=== PATIENT | female | born 1955 | race Caucasian/White ===

== ENCOUNTER 2024-09-30 18:13 | Emergency (ER) | payer MEDICARE, OTHER, SELFPAY ==
[2024-09-30 18:19] VITALS: BP 188/108
[2024-09-30 18:34] LABS: Hematocrit 40.2 % (37.0-47.0); Hemoglobin 13.0 g/dL (12.0-16.0); Mean Corp Hgb Conc. 32.3 g/dL (33.0-37.0); Mean Corpuscular Volume 86.1 fL (81.0-99.0); Nucleated Red Blood Cells % 0 %; Platelet Count 203 10^3/uL (130-400); Red Cell Dist. Width 14.1 % (11.5-14.5)
[2024-09-30 18:59] LABS: Troponin I < 0.012 ng/ml
[2024-09-30 19:01] LABS: ALT (SGPT) 15 U/L (0-35); AST (SGOT) 17 U/L (14-36); Albumin 4.3 g/dl (3.5-5.0); Alkaline Phosphatase 70 U/L (38-126); Blood Urea Nitrogen 19 mg/dl (7-17); Calcium 9.7 mg/dl (8.4-10.2); Carbon Dioxide 27 mmol/L (22-30); Chloride 108 mmol/L (98-107); Glucose 108 mg/dl (70-99); Lipase 81 U/L (23-300); Potassium 4.2 mmol/L (3.5-5.1); Sodium 140 mmol/L (135-145); Total Protein 7.5 g/dl (6.3-8.2); eGFR > 60.00
[2024-09-30 20:00] VITALS: BP 151/68
[2024-09-30] MEDS: TYLENOL 1000 MG PO (20:57)
[2024-09-30 21:00] VITALS: BP 155/73
[2024-09-30 21:52] LABS: Troponin I < 0.012 ng/ml
[2024-09-30 22:00] VITALS: BP 148/72
--- NOTE | 2024-10-01 00:02 | ED.GENMED ---
History of Present Illness
General
Chief Complaint: Chest Pain
Source: patient
Exam Limitations: none
Time Seen by Provider: 09/30/24 19:28
Nursing documentation reviewed up to this point in time: agreed with
History of Present Illness
History of Present Illness:
Patient to ED with complaint of left jaw pain, left upper arm pain and chest pain. States over the past fw weeks she notes intermittent pain to chest, at times on left, at timnes on right Pain is brief and resolves wthout any treatment. She
became concerned when she felt jaw and arm pain intermittently over the past few days. Denies n/v/diaphoresis. No activity intolerance. Brought self to ED for eval.
Past History
Past History
ED Past Medical History: GERD, Hypercholesterolemia and Other
ED Past Surgical History: Urological (Kidney stone removal 08/10/2020)
Patient has exhibited threatening behavior?: No
Social History
Tobacco: Non-smoker
Review of Systems
Review of Systems
Allergies reviewed?: Yes
All Other Systems: ROS reviewed and negative except as documented in HPI and ROS
Constitutional: Reports no symptoms
EENT: Reports no symptoms
Respiratory: Reports no symptoms
Cardiac: Reports chest pain
: Reports no symptoms
Musculoskeletal: Reports no symptoms
Skin: Reports no symptoms
Neurological: Reports no symptoms
Psychiatric: Reports no symptoms
Phy Exam
General Physical Exam
General Presentation: well appearing and no apparent distress
General age: appears stated age
General Skin: warm and dry
General Habitus: normal
Cardiovascular Exam
Cardiovascular Exam: regular rate/rhythm and no edema
Pulmonary Exam
Pulmonary Exam: lungs clear and no respiratory distress
Neurological Exam
Neurological Exam: alert and oriented x3
Musculoskeletal Exam
Musculoskeletal Exam: full ROM and neuro vasc intact
Skin Exam
Skin Exam: normal color, warm/dry and no rash
Psychiatric Exam
Psychiatric Exam: normal mood/affect
Scores
Heart Score for Chest Pain Patients
STEMI patient?: No
History: Slightly or Non-Suspicious
ECG: Normal
Age: >/= 65 years
Risk Factors: 1 or 2 Risk Factors
Troponin: </= Normal Limit
Heart Score for Chest Pain Patients: 3
Heart Score Risk: 2.5% MACE over next 6 weeks
Course
Orders/Labs/Results
Orders:
Orders
09/30/24 18:14
Electrocardiogram (*1) Urgent
Reason for Study: Chest Pain
EKG- Treatment ONCE
09/30/24 18:28
Complete Blood Count/With Diff Urgent
Comprehensive Metabolic Panel Urgent
Lipase Urgent
Troponin I Urgent
09/30/24 20:55
Acetaminophen [Tylenol] 1,000 mg .ROUTE .STK-MED ONE
09/30/24 20:57
Acetaminophen [Tylenol] 1,000 mg PO NOW STA
09/30/24 21:18
Troponin I Urgent
Abnormal Lab Results
09/30/24
18:28
MCHC 32.3 L g/dL
(33.0-37.0)
Absolute Lymphs (auto) 1.1 L 10^3/uL
(1.2-3.4)
Lymphocytes % 17.0 L %
(20.5-51.1)
Chloride 108 H mmol/L
(98-107)
BUN 19 H mg/dl
(7-17)
Glucose 108 H mg/dl
(70-99)
09/30/24 18:28
09/30/24 18:28
Vital Signs
Initial and Last Documented VS:
Initial Vital Signs
Temp Pulse Resp BP Pulse Ox
98.1 F 74 16 188/108 98
09/30/24 18:19 09/30/24 18:19 09/30/24 18:19 09/30/24 18:19 09/30/24 18:19
Last Documented Vital Signs
Temp Pulse Resp BP Pulse Ox
98.1 F 61 20 148/72 98
09/30/24 18:19 09/30/24 22:15 09/30/24 22:15 09/30/24 22:00 10/01/24 00:06
*Pulse Oximetry
SaO2: 98
Oxygen Mode of Delivery: Room air
Patient hypoxic: no
*Critical Care Note
Total Time (30-74mins, 75-104mins- exclusive of procedures): Not Applicable
Update Note
Update Note:
Patient to ED with complaint of intermittent chest pain. No aggravating or alleviating factors. No n/v/diaphoresis. No SOB. She has remained asymptomatic in ED. VSS, EKG NSR, Labs reviewed with her. troponin neg x 2. Doubtful for ACS. will
discharge home and she will follow closely with PCP. Given instructions on s/s to return to ED and she is agreeable to plan.
ED Attending Note
-
Portions of this chart may have been created with voice recognition software.� Occasional wrong word or��sound alike� substitutions may have occurred due to the inherent limitations of voice recognition software.
Discharge Plan
Departure
Patient Disposition: Home (Routine Discharge)
Date of Disposition: 09/30/24
Time of Disposition: 22:00
Patient with high blood pressure during this ER visit?: No
Condition: Good
Discharge Problem:
Chest pain
Instructions: Chest Pain PCP Follow Up
Prescriptions:
No Action
tramadol 50 MG tablet
50 mg PO Q8HPRN PRN (Reason: pain) Qty: 30 0RF
phenazopyridine 100 MG tablet
100 mg PO BID Qty: 30 0RF
Referrals:
Maria C Byrd CRNP [Family Provider, Family Practice]
Activity Restrictions/Additional Instructions:
Return to the emergency department immediately for any changes in/worsening of your symptoms.
Interventions
Interventions:
*Risk Screen - Suicide Last Done: 09/30/24 18:19
*General Assessment Last Done: 09/30/24 18:19
*Neglect/Abuse Screening Last Done: 09/30/24 18:19
*ED- Fall Risk Assessment Last Done: 09/30/24 19:40
*ED COVID-19 Vaccine History Last Done: 09/30/24 18:19
*Nursing Disposition Last Done: 09/30/24 22:28
ED- Cardiac Assessment Last Done: 09/30/24 21:20
Discharge Date and Time
Discharge Date/Time: 09/30/24 22:28
Print Language: LITHUANIAN
== END 2024-09-30 22:28 | disposition home or self-care (01) ==
LOC: EMR 18:13
PROVIDERS: Student in an Organized Health Care Education/Training Program; EMERGENCY PHYSICIAN Emergency Medicine; FAMILY PHYSICIAN Nurse Practitioner
DX: R07.89 Other chest pain (principal); M79.622 Pain in left upper arm; R68.84 Jaw pain; E78.00 Pure hypercholesterolemia, unspecified; K21.9 Gastro-esophageal reflux disease without esophagitis; M19.90 Unspecified osteoarthritis, unspecified site; Z87.442 Personal history of urinary calculi; Z88.6 Allergy status to analgesic agent; Z88.8 Allergy status to other drugs, medicaments and biological substances
CPT/HCPCS: 99283; 80053; 83690; 84484; 85025; 93005